=== PATIENT | female | born 1985 | race Caucasian/White ===

== ENCOUNTER 2018-11-25 22:18 | Emergency (ER) | payer MEDICAID ==
[~2018-11-25] VITALS: Ht 157.5 cm; Wt 72.0 kg
[2018-11-25] MEDS ORDERED: LORAZEPAM 0.5MG TABLET PO ONE (22:45)
[2018-11-26 01:26] VITALS: BP 133/72
== END 2018-11-26 01:29 | disposition home or self-care (01) ==
LOC: ER 22:18
DX: R07.89 Other chest pain (principal)
CPT/HCPCS: 71045; 81025; 93005; 99283